=== PATIENT | male | born 1960 | race Caucasian/White ===

== ENCOUNTER → 2018-05-01 09:45 | Outpatient (CLI) | payer MEDICARE, MEDICAID, SELFPAY ==
[2018-05-01 14:11] LABS: Basophils % 0.2 % (0.1-2.0); Eosinophils # 0.2 K/mm3 (0.0-0.4); Eosinophils % 2.1 % (0.1-12.0); Hematocrit 42.7 % (42.0-52.0); Hemoglobin 13.4 g/dL (14.1-18.0); Lymphocytes # 0.7 K/mm3 (0.7-4.5); Lymphocytes % 9.5 K/mm3 (10-50); Mean Corpuscular HGB Conc 31.4 g/dL (31.8-35.4); Mean Corpuscular Hemoglobin 31.3 pg (27.0-31.2); Mean Corpuscular Volume 99.6 fl (80-94); Mean Platelet Volume 8.5 fl (7.4-10.4); Monocytes # 0.6 K/mm3 (0.1-1.0); Monocytes % 8.1 % (1.7-9.3); Neutrophils # 5.8 K/mm3 (1.8-7.8); Neutrophils % 80.1 % (37.0-80.0); Platelet Count 264 K/mm3 (142-424); Red Blood Count 4.28 M/mm3 (4.60-6.20); Red Cell Distribution Width 13.3 % (11.5-17.5); White Blood Count 7.2 K/mm3 (4.8-10.8)
[2018-05-01 14:34] LABS: Alanine Aminotransferase 20 U/L (12-78); Albumin Level 3.7 gm/dL (3.4-5.0); Albumin/Globulin Ratio 1.3 (1.1-1.8); Alkaline Phosphatase 79 U/L (46-116); Anion Gap 12.6 mEq/L (5-15); Aspartate Amino Transferase 9 U/L (15-37); Bilirubin,Total 0.3 mg/dL (0.2-1.0); Blood Urea Nitrogen 9 mg/dL (7-18); Calcium 9.3 mg/dL (8.5-10.1); Carbon Dioxide 29 mmol/L (21.0-32.0); Chloride 105 mmol/L (98-107); Chol/HDL Ratio 3.9 (1-3.5); Cholesterol 174 mg/dL (140-200); Creatinine,Serum 0.65 mg/dL (0.70-1.30); Estimated Glomerular Filt Rate 126 ml/min (>60); GFR (African American) 152 ML/MIN (>60); Globulin 2.8 gm/dl (1.3-3.2); Glucose 82 mg/dL (74-106); HDL Cholesterol 45 mg/dL (27-67); LDL Cholesterol 97 mg/dL (0-130); Potassium 4.6 mmoL/L (3.5-5.1); Sodium 142 mmol/L (136-145); T4 (Thyroxine) 7.8 ug/dl (4.7-13.3); Thyroid Stimulating Hormone 3.31 uIU/ml (0.358-3.740); Total Protein,Serum 6.5 gm/dL (6.4-8.2); Triglycerides 160 mg/dL (30-200); VLDL Cholesterol 32 mg/dL (0-40)
[2018-05-05 05:23] LABS: Prostate Specific Ag 0.6 ng/mL (0.0-4.0); Vitamin D 25 Hydroxy 30.5 ng/mL (30.0-100.0)
== END ==
PROVIDERS: Visit Provider Physician Assistant
DX: I10 Essential (primary) hypertension (principal); R07.9 Chest pain, unspecified; R42 Dizziness and giddiness; Z85.9 Personal history of malignant neoplasm, unspecified; Z92.21 Personal history of antineoplastic chemotherapy; Z92.3 Personal history of irradiation
CPT/HCPCS: 80053; 80061; 82652; 84153; 84154; 84436; 84443; 85025

== ENCOUNTER → 2018-05-06 13:00 | Outpatient (CLI) | payer MEDICARE, MEDICAID, SELFPAY ==
--- NOTE | 2018-05-06 13:02 | CT_ITS ---
CT chest wo con HISTORY: Shortness of air, tobacco use, smoker ITS.REASON: . ORDERING PHYSICIAN: Remi Quinonez MD PATIENT AGE: 57 years COMPARISON: None Technique: Axial images obtained with sagittal and coronal reformats. All CT scans at the facility use one or more dose reduction, viz: automated exposure control, ma/kV adjustment per patient size (including targeted exams where dose is matched to indication, i.e. head), or iterative reconstruction technique. FINDINGS: No mediastinal or hilar mass or adenopathy. There are a few small lymph nodes in the mediastinum some of which are calcified. Coronary artery calcifications are present. There is minimal thickening of the pericardium anteriorly. There are centrilobular and paraseptal emphysematous changes with scarring in the lung apices. There is a 4 mm noncalcified nodule in right upper lobe anteriorly and a 4 mm nodule in the right lower lobe posterior to the hilum on image #56 there is mild diffuse bronchial thickening. Minimal parenchymal density is noted in the left lower lobe laterally #63 may be due to an area of scarring or atelectatic change. There is a 6 mm noncalcified nodule in the right upper lobe inferiorly on image #53.. No central obstructing lesion. No effusions or infiltrates. There are mild atelectatic or fibrotic changes in the lingula and right middle lobe. Upper abdominal images show a right renal cyst at 3 cm. No acute bony anomalies. IMPRESSION: 1. Centrilobular and paraseptal emphysema with apical blebs and biapical scarring with COPD 2. There are at least 3 noncalcified pulmonary nodules largest in the right upper lobe inferiorly measuring up to 6 mm. Recommend 6 month follow-up. 3. Coronary artery calcifications
== END ==
PROVIDERS: PCP Physician Assistant; Visit Provider Internal Medicine Cardiovascular Disease
DX: F17.200 Nicotine dependence, unspecified, uncomplicated (principal); I10 Essential (primary) hypertension; R06.00 Dyspnea, unspecified; R07.9 Chest pain, unspecified; R94.31 Abnormal electrocardiogram [ECG] [EKG]; Z82.49 Family history of ischemic heart disease and other diseases of the circulatory system; Z85.9 Personal history of malignant neoplasm, unspecified; Z92.21 Personal history of antineoplastic chemotherapy; Z92.3 Personal history of irradiation
CPT/HCPCS: 71250

== ENCOUNTER → 2018-05-09 06:27 | Outpatient (CLI) | payer MEDICARE, MEDICAID, SELFPAY ==
--- NOTE | 2018-05-09 06:30 | NM_ITS ---
History and Indications: Hypertension, tobacco use, family history, chest pain, shortness of breath and fatigue Procedure: Patient received a 0.4 mg of Lexiscan, resting heart rate was 79 bpm resting blood pressure 103/70, with Lexiscan maximum heart rate achieved was 104 bpm, and the blood pressure was 106/63. With Lexiscan patient complained of chest pain. Electrocardiogram: Resting electrocardiogram showed sinus rhythm, with Lexiscan there is less than 1.[address] segment depression noted from the baseline EKG. The EKG portion of the Lexiscan Myoview is nondiagnostic. Cardiac stress and resting SPECT images: Cardiac stress and rest SPECT images were obtained using technetium 99 Myoview 30.4 mCi at stress gated 10.5 mCi at rest, gated SPECT further analysis of segmental wall motion and calculation of the ejection fraction also done. Cardiac stress and rest images show uniform myocardial activity without segmental perfusion abnormality, computer derived ejection fraction 55% with no regional wall motion abnormality, right ventricle is normal size and contractility. Conclusion: 1. The EKG portion of the Lexiscan Myoview is nondiagnostic. 2. No scintigraphic evidence of reversible ischemia seen, computer ejection fraction 55% with no regional wall motion abnormality. Right ventricle is normal size and contractility. 3. Normal Lexiscan Myoview study.
--- NOTE | 2018-05-09 06:30 | CA_ITS ---
PROCEDURE: 2-D M-mode and color Doppler study INDICATIONS FOR THE TEST: Chest pain+ COPD Heart Murmur Tobacco Smoking+ Palpitations+ Fatigue Syncope Edema Hypertension+Diabetes Mellitus Rheumatic Fever SOB+KRISHNAMURTHY+Obesity Hyperlipidemia Family History HD+ Additional History abn EKG, dizziness PATIENT INFORMATION HEIGHT: 71 WEIGHT: 148 GENDER: Male B/P: 111/67 2-D/M-MODE INTERPRETATION: 2-D MEASUREMENTS OBSERVED VALUES IN CMS Right Ventricular Dimension (RVDd) 1.8 Interventricular Septum (Thickness)(IVsd) 0.8 Left Ventricular Internal Dimensions(LVIDd) 4.9 Left Ventricular Posterior Wall (Thickness)(LVPWd) 0.8 Aortic Root 3.1 Aortic Cusp Separation 2.2 Left Atrial Dimensions (LAD) 2.5 2D 1. Left atrium is normal size, left ventricle is normal size, there is no concentric left ventricular hypertrophy, visually estimated ejection fraction of 55% with no regional wall motion abnormality. 2. The right atrium and right ventricle are normal size and contractility. 3. The aortic valve is minimally thickened and fibrosed. 4. The mitral valve has mild calcification of the valve. There is no mitral stenosis. 5. The tricuspid valve is grossly normal. 6. The pulmonic valve is poorly was visualized. 7. No significant pericardial effusion noted. DOPPLER INTERROGATION: Doppler interrogation of the aortic, mitral and tricuspid valvular presence of mild mitral and tricuspid regurgitation, tricuspid regurgitation jet velocity is insufficient for calculation of the right ventricular systolic pressure, diastolic parameters are inconclusive. CONCLUSION: 1. Normal left ventricular size, preserved left ventricular systolic function, visually estimated ejection fraction 55% with no obvious regional wall motion abnormality, diastolic parameters are inconclusive. 2. Mild mitral and tricuspid regurgitation 3. No significant pericardial effusion noted.
== END ==
PROVIDERS: PCP Physician Assistant; Visit Provider Internal Medicine Cardiovascular Disease
DX: F17.200 Nicotine dependence, unspecified, uncomplicated (principal); I10 Essential (primary) hypertension; R06.00 Dyspnea, unspecified; R07.9 Chest pain, unspecified; R94.31 Abnormal electrocardiogram [ECG] [EKG]; Z82.49 Family history of ischemic heart disease and other diseases of the circulatory system; Z85.9 Personal history of malignant neoplasm, unspecified; Z92.21 Personal history of antineoplastic chemotherapy; Z92.3 Personal history of irradiation
CPT/HCPCS: 78452; 93017; 93306; A9502; J2785

== ENCOUNTER → 2019-04-29 14:49 | Outpatient (CLI) | payer MEDICARE, MEDICAID, SELFPAY ==
[2019-04-30 19:41] LABS: Amphetamine/Metha Screen,Urine Negative ng/mL (<1000); Barbiturates Screen,Urine Negative ng/mL (<200); Benzodiazepines Screen,Urine Negative ng/mL (<200); Cannabinoid Screen,Urine Negative ng/mL (<50); Cocaine Screen,Urine Negative ng/mL (<300); Methadone Screen,Urine Negative ng/mL (<300); Opiate Screen,Urine Negative ng/mL (<300); Phencyclidine Screen,Urine Negative ng/mL (<25)
== END ==
PROVIDERS: Visit Provider Emergency Medicine
DX: Z79.891 Long term (current) use of opiate analgesic (principal)
CPT/HCPCS: 80305

== ENCOUNTER → 2020-10-07 14:30 | Outpatient (CLI) | payer MEDICARE, SELFPAY ==
[2020-10-07 17:15] LABS: Basophils % 0.5 % (0.1-2.0); Eosinophils # 0.2 K/mm3 (0.0-0.4); Eosinophils % 1.9 % (0.1-12.0); Hemoglobin 14.3 g/dL (14.1-18.0); Lymphocytes # 1.3 K/mm3 (0.7-4.5); Lymphocytes % 16.5 % (10-50); Mean Corpuscular HGB Conc 31.1 g/dL (31.8-35.4); Mean Corpuscular Hemoglobin 29.1 pg (27.0-31.2); Mean Corpuscular Volume 93.6 fl (80-94); Mean Platelet Volume 9.9 fl (7.4-10.4); Monocytes # 0.5 K/mm3 (0.1-1.0); Monocytes % 6.4 % (1.7-9.3); Neutrophils # 5.9 K/mm3 (1.8-7.8); Neutrophils % 74.8 % (37.0-80.0); Platelet Count 286 K/mm3 (142-424); Red Blood Count 4.91 M/mm3 (4.60-6.20); Red Cell Distribution Width 13.3 % (11.5-17.5); White Blood Count 7.9 K/mm3 (4.8-10.8)
[2020-10-07 17:21] LABS: Chloride 101 mmol/L (98-107); Potassium 4.7 mmoL/L (3.5-5.1); Sodium 136 mmol/L (136-145)
[2020-10-07 17:23] LABS: Alanine Aminotransferase 11 U/L (12-78); Anion Gap 12.7 mEq/L (5-15); Aspartate Amino Transferase 19 U/L (17-59); Blood Urea Nitrogen 14 mg/dl (9-20); Carbon Dioxide 27 mmol/L (22.0-30.0); Estimated Glomerular Filt Rate 86 ml/min (>60); GFR (African American) 104 ML/MIN (>60)
[2020-10-07 17:24] LABS: Albumin Level 4.6 g/dl (3.5-5.0); Albumin/Globulin Ratio 1.6 (1.1-1.8); Alkaline Phosphatase 88 U/L (38-126); Bilirubin,Total 0.5 mg/dl (0.2-1.3); Calcium 10.5 mg/dl (8.4-10.2); Chol/HDL Ratio 5.7 (1-3.5); Cholesterol 256 mg/dl (140-200); Globulin 2.9 g/dL (1.3-3.2); Glucose 96 mg/dl (74-100); HDL Cholesterol 45 mg/dl (40-60); Total Protein,Serum 7.5 g/dl (6.3-8.2); Triglycerides 206 mg/dl (30-150); VLDL Cholesterol 41 mg/dL (0-40)
[2020-10-07 17:36] LABS: Direct LDL Cholesterol 172.95 mg/dL (100-129)
[2020-10-07 17:47] LABS: T4 (Thyroxine) 13.4 ug/dl (5.53-11.0)
[2020-10-07 18:00] LABS: Thyroid Stimulating Hormone 0.25 uIU/mL (0.465-4.68)
[2020-10-07 18:01] LABS: 25-OH Vitamin D, Total 24.8 ng/mL (30-100)
[2020-10-09 16:58] LABS: PSA, Free 0.23 ng/mL; Prostate Specific Ag 0.7 ng/mL (0.0-4.0)
== END ==
PROVIDERS: Visit Provider Emergency Medicine
DX: Z79.899 Other long term (current) drug therapy (principal); I10 Essential (primary) hypertension; E55.9 Vitamin D deficiency, unspecified; N50.819 Testicular pain, unspecified; Z92.21 Personal history of antineoplastic chemotherapy; Z92.3 Personal history of irradiation; Z85.9 Personal history of malignant neoplasm, unspecified; F17.210 Nicotine dependence, cigarettes, uncomplicated
CPT/HCPCS: 80053; 80061; 82306; 84153; 84154; 84436; 84443; 85025

== ENCOUNTER → 2020-11-22 15:46 | Outpatient (CLI) | payer MEDICARE, SELFPAY ==
[2020-11-22 20:09] LABS: Barbiturates Screen,Urine Negative ng/ml (<200)
[2020-11-22 20:10] LABS: Benzodiazepines Screen,Urine Negative ng/ml (<200)
[2020-11-22 20:11] LABS: Cocaine Screen,Urine Negative ng/ml (<300); Methadone Screen,Urine Negative ng/ml (<300)
[2020-11-22 20:12] LABS: Opiate Screen,Urine Positive ng/ml (<300)
[2020-11-22 20:13] LABS: Phencyclidine Screen,Urine Negative ng/ml (<25)
[2020-11-22 20:44] LABS: Amphetamine/Metha Screen,Urine Negative ng/ml (<1000); Cannabinoid Screen,Urine Negative ng/ml (<50)
== END ==
PROVIDERS: Visit Provider Emergency Medicine
DX: Z79.899 Other long term (current) drug therapy (principal)
CPT/HCPCS: 80305

== ENCOUNTER → 2021-01-17 13:58 | Outpatient (CLI) | payer MEDICARE, SELFPAY ==
[2021-01-17 14:25] LABS: Benzodiazepines Screen,Urine Negative ng/ml (<200)
[2021-01-17 14:26] LABS: Cannabinoid Screen,Urine Negative ng/ml (<50)
[2021-01-17 14:27] LABS: Methadone Screen,Urine Negative ng/ml (<300)
[2021-01-17 14:30] LABS: Phencyclidine Screen,Urine Negative ng/ml (<25)
[2021-01-17 14:57] LABS: Amphetamine/Metha Screen,Urine Negative ng/ml (<1000)
[2021-01-17 16:50] LABS: Barbiturates Screen,Urine Negative ng/ml (<200)
[2021-01-17 16:51] LABS: Opiate Screen,Urine Positive ng/ml (<300)
[2021-01-17 18:32] LABS: Cocaine Screen,Urine Negative ng/ml (<300)
== END ==
PROVIDERS: Visit Provider Emergency Medicine
DX: M54.9 Dorsalgia, unspecified (principal); Z79.899 Other long term (current) drug therapy
CPT/HCPCS: 80305

== ENCOUNTER → 2021-02-03 14:55 | Outpatient (CLI) | payer MEDICARE, SELFPAY ==
--- NOTE | 2021-02-03 14:55 | MR_ITS ---
PROCEDURE INFORMATION: Exam: MR Lumbar Spine Without Contrast Exam date and time: 02/03/2021 2:55 PM Age: 60 years old Clinical indication: Patient HX: Low back pain, tingling and numbness in left leg TECHNIQUE: Imaging protocol: Multiplanar magnetic resonance images of the lumbar spine without intravenous contrast. COMPARISON: No relevant prior studies available. FINDINGS: Vertebral body height and AP alignment is preserved. Disc desiccation at L5-S1. Negative for discitis/osteomyelitis. Conus medullaris terminates L1-L2. Right-sided sacral Tarlov cyst measures 2.5 cm. L1-L2: No significant central or foraminal stenosis. L2-L3: Mild facet joint arthropathy without significant central or foraminal stenosis. L3-L4: Minimal disc bulge and mild bilateral facet joint arthropathy. No significant central or foraminal stenosis. L4-L5: Mild disc bulge and mild bilateral facet joint arthropathy. No significant central canal stenosis. There is mild bilateral foraminal stenosis. L5-S1: Mild disc bulge with mild bilateral facet joint arthropathy. No significant central canal stenosis. There is mild right and moderate to severe left foraminal stenosis. IMPRESSION: 1. No acute abnormality involving the lumbar spine. 2. No significant central canal compromise throughout. 3. Moderate to severe left-sided foraminal stenosis at L5-S1.
--- NOTE | 2021-02-03 14:55 | MR_ITS ---
PROCEDURE INFORMATION: Exam: MR Cervical Spine Without Contrast Exam date and time: 02/03/2021 2:55 PM Age: 60 years old Clinical indication: Patient HX: Neck pain, tingling and numbness in arms, previous surgery on neck to remove cancer TECHNIQUE: Imaging protocol: Multiplanar magnetic resonance images of the cervical spine without contrast. COMPARISON: CT HEAD/BRAIN WO CON 09/18/2019 10:56 PM FINDINGS: Alignment grossly normal. Signal intensity within the bone marrow normal. Spinal cord normal. Visualized portions of the brain in the posterior fossa is also normal. Mild degenerative disc disease throughout much of the cervical spine including C3-C4 through C6-C7. Annular disc bulge and/or disc protrusions. No marrow edema C2-C3: Central canal and neural foramina are widely patent. C3-C4: Broad-based annular disc bulge effaces the anterior aspect of the thecal sac mildly so. Mild narrowing of the left neural foramina C4-C5: Mild broad-based annular disc bulge with a small central disc protrusion. Mild narrowing of the left neural foramina. C5-C6: Central canal and neural foramina are widely patent. C6-C7: Central canal and neural foramina are widely patent. C7-T1: Central canal and neural foramina are widely patent. IMPRESSION: Mild degenerative disc disease. See above.
== END ==
PROVIDERS: PCP Emergency Medicine; Visit Provider Emergency Medicine
DX: M54.9 Dorsalgia, unspecified (principal); M54.2 Cervicalgia; M54.5 Low back pain
CPT/HCPCS: 72141; 72148; 76376

== ENCOUNTER 2021-03-02 23:19 | Emergency (ER) | payer MEDICARE, SELFPAY ==
[2021-03-02 23:20] VITALS: BP 136/80; PULSE 90; RESP 18; TEMP 36.6; O2SAT 97; BMI 22.3
[2021-03-02 23:31] VITALS: BMI 34.5
--- NOTE | 2021-03-02 23:41 | ECG_ITS ---
APPROVED REPORT Exam: Resting ECG HR:79 bpm ECG Measurements Heart Rate 79 AXES AK 178 P 39 QRSd 78 QRS 56 QT 368 T 51 QTc 421 Conclusion Sinus rhythm with premature supraventricular complexes Otherwise normal ECG Electronically signed by : Ayaan Ray, 03/03/2021 21:36:18
[2021-03-02 23:57] LABS: Alanine Aminotransferase 14 U/L (12-78); Albumin Level 4.3 g/dl (3.5-5.0); Albumin/Globulin Ratio 1.7 (1.1-1.8); Alkaline Phosphatase 83 U/L (38-126); Aspartate Amino Transferase 23 U/L (17-59); Bilirubin,Total 0.5 mg/dl (0.2-1.3); Blood Urea Nitrogen 10 mg/dl (9-20); Calcium 9.3 mg/dl (8.4-10.2); Carbon Dioxide 27 mmol/L (22.0-30.0); Chloride 101 mmol/L (98-107); Creatinine Clearance Estimated 96 mL/min (50-200); Estimated Glomerular Filt Rate 86 ml/min (>60); Ethyl Alcohol < 10 mg/dl (0-10); GFR (African American) 103 ML/MIN (>60); Globulin 2.6 g/dL (1.3-3.2); Glucose 94 mg/dl (74-100); Sodium 136 mmol/L (136-145); Total Protein,Serum 6.9 g/dl (6.3-8.2)
[2021-03-03] VITALS (7 sets, daily range): BP systolic 144–183; BP diastolic 77–95; PULSE 65–73; RESP 18; TEMP 36.7; O2SAT 92–94
[2021-03-03 00:02] LABS: C-Reactive Protein 4.8 mg/L (0-4)
[2021-03-03 00:10] LABS: Basophils % 0.5 % (0.1-2.0); Eosinophils # 0.2 K/mm3 (0.0-0.4); Eosinophils % 2.9 % (0.1-12.0); Hematocrit 40.3 % (42.0-52.0); Hemoglobin 13.8 g/dL (14.1-18.0); Lymphocytes # 1.8 K/mm3 (0.7-4.5); Lymphocytes % 25.5 % (10-50); Mean Corpuscular HGB Conc 34.2 g/dL (31.8-35.4); Mean Corpuscular Hemoglobin 30.3 pg (27.0-31.2); Mean Corpuscular Volume 88.7 fl (80-94); Mean Platelet Volume 8.5 fl (7.4-10.4); Monocytes # 0.6 K/mm3 (0.1-1.0); Monocytes % 7.8 % (1.7-9.3); Neutrophils # 4.5 K/mm3 (1.8-7.8); Neutrophils % 63.2 % (37.0-80.0); Platelet Count 222 K/mm3 (142-424); Red Blood Count 4.54 M/mm3 (4.60-6.20); Red Cell Distribution Width 13.7 % (11.5-17.5); White Blood Count 7.1 K/mm3 (4.8-10.8)
--- NOTE | 2021-03-03 00:10 | XR_ITS ---
PROCEDURE INFORMATION: Exam: XR Chest Exam date and time: 03/03/2021 12:10 AM Age: 60 years old Clinical indication: Other: Left face droop, left arm numb, chest pain; Patient HX: Facial droop and numb left side, left arm numb, chest pain; Additional info: Numbness, facial droop TECHNIQUE: Imaging protocol: XR of the chest. Views: 2 views. COMPARISON: CR XR CHEST 2V 09/18/2019 10:45 PM FINDINGS: Lungs: There is a horizontal band of density in the left lung base periphery. Otherwise unremarkable. No consolidation. Pleural spaces: Unremarkable. No pleural effusion. No pneumothorax. Heart/Mediastinum: Unremarkable. No cardiomegaly. Bones/joints: Unremarkable. IMPRESSION: 1. There is discoid atelectasis in the left lower lobe periphery. 2. Otherwise no additional acute cardiopulmonary process.
--- NOTE | 2021-03-03 00:11 | CT_ITS ---
PROCEDURE INFORMATION: Exam: CT Head Without Contrast Exam date and time: 03/03/2021 12:11 AM Age: 60 years old Clinical indication: Other: Left face numb left left arm numb left face droop; Additional info: Left side facial droop , numbness and weakness to TECHNIQUE: Imaging protocol: Computed tomography of the head without contrast. Radiation optimization: All CT scans at this facility use at least one of these dose optimization techniques: automated exposure control; mA and/or kV adjustment per patient size (includes targeted exams where dose is matched to clinical indication); or iterative reconstruction. Other technique: STROKE PROTOCOL was implemented. COMPARISON: CT HEAD/BRAIN WO CON 09/18/2019 10:56 PM FINDINGS: Brain: No evidence of acute intracranial hemorrhage. No acute parenchymal edema. Cerebral ventricles: No ventriculomegaly. Paranasal sinuses: Visualized sinuses are unremarkable. No fluid levels. Mastoid air cells: Unremarkable as visualized. No mastoid effusion. Bones/joints: No acute fracture. Soft tissues: Unremarkable. IMPRESSION: No acute intracranial process. ASSESSMENT: ASPECTS ([place] Stroke Program Early CT Score) is 10.
--- NOTE | 2021-03-03 00:12 | CT_ITS ---
PROCEDURE INFORMATION: Exam: CT Angiography Head With Contrast, Arteriography Exam date and time: 03/03/2021 12:12 AM Age: 60 years old Clinical indication: Other: Left face droop, left face and left arm numb; Patient HX: Left face and left arm numb left face droop; Additional info: Facial droop, numbness, MAGALLON TECHNIQUE: Imaging protocol: Computed tomography angiography of the head with contrast. Exam focused on the arteries. 3D rendering (Not supervised by radiologist): MIP and/or 3D reconstructed images were created by the technologist. Radiation optimization: All CT scans at this facility use at least one of these dose optimization techniques: automated exposure control; mA and/or kV adjustment per patient size (includes targeted exams where dose is matched to clinical indication); or iterative reconstruction. Contrast material: ISOVUE 370; Contrast volume: 100 ml; Contrast route: INTRAVENOUS (IV); COMPARISON: CT HEAD/BRAIN WO CON 09/18/2019 10:56 PM FINDINGS: ANTERIOR CIRCULATION: Right internal carotid artery: There are mural calcifications and plaque along the course of the intracranial internal carotid artery. There is no resulting stenosis of the intracranial segments. Right middle cerebral artery: Unremarkable. No occlusion or significant stenosis. No aneurysm. Right anterior cerebral artery: Unremarkable. No occlusion or significant stenosis. No aneurysm. Left internal carotid artery: There are mural calcifications and plaque along the course of the intracranial internal carotid artery. There is no resulting stenosis of the intracranial segments. Left middle cerebral artery: Unremarkable. No occlusion or significant stenosis. No aneurysm. Left anterior cerebral artery: Unremarkable. No occlusion or significant stenosis. No aneurysm. POSTERIOR CIRCULATION: Right vertebral artery: Unremarkable. No occlusion or significant stenosis. No aneurysm. Left vertebral artery: Unremarkable. No occlusion or significant stenosis. No aneurysm. Basilar artery: Unremarkable. No occlusion or significant stenosis. No aneurysm. Right posterior cerebral artery: There is an hypoplastic P1 segment. There is auxiliary supply to the P2 segment is supplied by a patent P-comm. No occlusion or significant stenosis. No aneurysm. Left posterior cerebral artery: There is an hypoplastic P1 segment. There is auxiliary supply to the P2 segment is supplied by a patent P-comm. No occlusion or significant stenosis. No aneurysm. Brain: No definite mass, mass effect, or midline shift. Cerebral ventricles: No ventriculomegaly. Bones/joints: Unremarkable. No acute fracture. Soft tissues: Unremarkable. IMPRESSION: 1. There are mild calcific atherosclerotic changes of the bilateral intracranial internal carotid arteries but no resulting significant stenosis. 2. No evidence of intracranial large vessel stenosis or occlusion of the remaining intracranial arterial vasculature. 3. No evidence of aneurysm or AVM.
--- NOTE | 2021-03-03 00:13 | CT_ITS ---
PROCEDURE INFORMATION: Exam: CT Angiography Neck With Contrast Exam date and time: 03/03/2021 12:13 AM Age: 60 years old Clinical indication: Other: Left face droop, left face and arm numb; Prior surgery; Surgery date: 6+ months; Surgery type: Left neck mass removed; Patient HX: Left face numb left arm numb left face droop; Additional info: Facial droop, numbness, MAGALLON TECHNIQUE: Imaging protocol: Computed tomography angiography of the neck with contrast. 3D rendering (Not supervised by radiologist): MIP and/or 3D reconstructed images were created by the technologist. Radiation optimization: All CT scans at this facility use at least one of these dose optimization techniques: automated exposure control; mA and/or kV adjustment per patient size (includes targeted exams where dose is matched to clinical indication); or iterative reconstruction. Contrast material: ISOVUE 370; Contrast volume: 100 ml; Contrast route: INTRAVENOUS (IV); COMPARISON: MR CERVICAL SPINE WO CON 02/03/2021 3:06 PM FINDINGS: Right common carotid artery: Unremarkable. No significant stenosis. No dissection or occlusion. Right internal carotid artery: There is calcified mural plaque at the carotid bifurcation, but no significant stenosis. The remaining extracranial segment is patent with no significant stenosis. No dissection or occlusion. Right external carotid artery: No occlusion or stenosis of the origin. Left common carotid artery: Unremarkable. No significant stenosis. No dissection or occlusion. Left internal carotid artery: There is calcified mural plaque at the carotid bifurcation, but no significant stenosis. The remaining extracranial segment is patent with no significant stenosis. No dissection or occlusion. Left external carotid artery: No occlusion or stenosis of the origin. Right vertebral artery: No stenosis. No dissection or occlusion. Left vertebral artery: No stenosis. No dissection or occlusion. Soft tissues: Normal. No significant soft tissue swelling. Bones/joints: No acute fracture. Lungs: There is panlobular and paraseptal emphysema in the bilateral upper lobes. IMPRESSION: [id number] calcific atherosclerotic changes at the bilateral carotid bifurcations, but no significant stenosis or occlusion. Otherwise no additional evidence of cervical great vessel stenosis or occlusion. REFERENCES: NASCET CRITERIA. The degree of internal carotid artery stenosis is based on NASCET criteria. Normal is no stenosis. Mild is less than 50% stenosis. Moderate is 50-69% stenosis. Severe is 70% to 99% stenosis. Total occlusion is no detectable patent lumen.
[2021-03-03 00:17] LABS: Troponin I < 0.01 ng/ml (0.00-0.034)
[2021-03-03 00:30] LABS: Thyroid Stimulating Hormone 1.51 uIU/mL (0.465-4.68)
[2021-03-03 00:58] LABS: Microscopic, Urine URINE MICROSCOPIC (MICROSCOPIC)
--- NOTE | 2021-03-03 01:01 | PC.NURSE ---
Delia speaking with SARA at this time
--- NOTE | 2021-03-03 01:02 | CT_ITS ---
PROCEDURE INFORMATION: Exam: CT Abdomen And Pelvis Without Contrast Exam date and time: 03/03/2021 1:02 AM Age: 60 years old Clinical indication: Abdominal pain; Acute; Additional info: Abd pain TECHNIQUE: Imaging protocol: Computed tomography of the abdomen and pelvis without contrast. Radiation optimization: All CT scans at this facility use at least one of these dose optimization techniques: automated exposure control; mA and/or kV adjustment per patient size (includes targeted exams where dose is matched to clinical indication); or iterative reconstruction. COMPARISON: MR LUMBAR SPINE WO CON 02/03/2021 3:06 PM FINDINGS: Liver: Unremarkable. No mass. Gallbladder and bile ducts: Multiple noncalcified stones in the gallbladder. No gallbladder wall thickening or pericholecystic fluid. Pancreas: Normal. No ductal dilation. Spleen: Normal. No splenomegaly. Adrenal glands: Normal. No mass. Kidneys and ureters: Multiple cysts in the kidneys. No solid renal masses. No hydronephrosis. Stomach and bowel: There is colonic diverticulosis without evidence of diverticulitis. The small bowel is unremarkable. No bowel obstruction. Appendix: No evidence of appendicitis. Intraperitoneal space: No free air. No significant fluid collection. Vasculature: Unremarkable. No abdominal aortic aneurysm. Lymph nodes: Unremarkable. No enlarged lymph nodes. Urinary bladder: Unremarkable as visualized. Reproductive: Unremarkable as visualized. Bones/joints: Unremarkable. No acute fracture. Soft tissues: Small fat containing ventral abdominal wall hernia. IMPRESSION: 1. Cholelithiasis. No secondary signs of acute cholecystitis. 2. Fat containing ventral abdominal wall hernia. 3. Colonic diverticulosis without evidence of diverticulitis. COMMENTS: Consistent with the [employer]'s Incidental Findings Committee white paper (J Am Tunde Radiol 2018): Any incidental renal lesion less than 1 cm or classified as too small to characterize, or any incidental cystic renal lesion characterized as simple-appearing, is likely benign. No follow-up imaging is recommended for these lesions per consensus recommendations based on imaging criteria.
--- NOTE | 2021-03-03 01:09 | [facility].EDNEU ---
ED Disposition Clinical Impression: TIA (transient ischemic attack) Cholelithiasis Qualifiers: Cholelithiasis location: gallbladder Cholecystitis presence: without cholecystitis Biliary obstruction: without biliary obstruction Qualified Code(s): K80.20 - Calculus of gallbladder without cholecystitis without obstruction Disposition: Home, Self-Care Condition on Discharge: Good Instructions: DI for Gallstones Additional Instructions: see pcp and dr carbone for follow up Referrals: Gallo Lin MD [Primary Care Provider] - Maykel Carbone MD [Staff Physician] - - Critical Care Critical Care Time: No Attestation: On 03/02/21, the high probability of a clinically significant, sudden or life threatening deterioration of the following system(s) required my full and direct attention, intervention and personal management. The time I documented below is in addition to time spent performing reported procedures but includes the following listed in this critical care notation. Medical Decision Making - Medical Records Medical records reviewed: Yes: I reviewed the patient's medical records. - Umer Inquiry Pt receiving controlled substance: No Vital Signs: 03/02/21 23:20 03/03/21 00:00 03/03/21 00:30 Temperature 97.8 F Temperature Source Oral Pulse Rate 67 65 Pulse Rate [Right] 90 Respiratory Rate 18 Blood Pressure 144/82 H 145/77 H Blood Pressure [Right Arm] 136/80 Blood Pressure Mean [Right Arm] 98 02 Sat by Pulse Oximetry 97 93 L 92 L 03/03/21 01:00 Temperature Temperature Source Pulse Rate 70 Pulse Rate [Right] Respiratory Rate Blood Pressure 183/94 H Blood Pressure [Right Arm] Blood Pressure Mean [Right Arm] 02 Sat by Pulse Oximetry 92 L - Lab Data Lab results reviewed: Yes: I reviewed the patient's lab results. Lab Results 03/02/21 23:30: WBC 7.1, RBC 4.54 L, Hgb 13.8 L, Hct 40.3 L, MCV 88.7, MCH 30.3, MCHC 34.2, RDW 13.7, Plt Count 222, MPV 8.5, Neut % (Auto) 63.2, Lymph % (Auto) 25.5, Edgar % (Auto) 7.8, Eos % (Auto) 2.9, Baso % (Auto) 0.5, Neut # (Auto) 4.5, Lymph # (Auto) 1.8, Edgar # (Auto) 0.6, Eos # (Auto) 0.2, Baso # (Auto) 0.0, ESR 22 H 03/02/21 23:30: Sodium 136, Potassium 4.0, Chloride 101, Carbon Dioxide 27, Anion Gap 12.0, BUN 10, Creatinine 0.90, Estimated Creat Clear 96, Estimated GFR 86, Est GFR ( Amer) 103, Glucose 94, Calcium 9.3, Total Bilirubin 0.5, AST 23, ALT 14, Alkaline Phosphatase 83, Troponin I < 0.01, C-Reactive Protein 4.8 H, Total Protein 6.9, Albumin 4.3, Globulin 2.6, Albumin/Globulin Ratio 1.7, TSH 1.51 03/02/21 23:30: Plasma/Serum Alcohol < 10 03/03/21 00:50: Urine Color Yellow, Urine Appearance Clear, Urine pH 6.0, Ur Specific [place] 1.010, Urine Protein Negative, Urine Glucose (UA) Negative, Urine Ketones Negative, Urine Blood Negative, Urine Nitrate Negative, Urine Bilirubin Negative, Urine Urobilinogen 0.2, Ur Leukocyte Esterase Negative, Urine RBC None, Urine WBC None, Ur Squamous Epith Cells None, Urine Bacteria None 03/03/21 00:50: Urine Opiates Screen Positive H, Urine Methadone Screen Negative, Ur Barbituates Screen Negative, Ur Phencyclidine Scrn Negative, Ur Amphetamines Screen Negative, U Benzodiazepines Scrn Negative, Urine Cocaine Screen Negative, U Marijuana (THC) Screen Negative Result diagrams: 03/02/21 23:30 03/02/21 23:30 Orders (Tests/Meds): ED MEDICATIONS Discontinued Medications Generic Name Dose Route Start Last Admin Trade Name Elanq PRN Reason Stop Dose Admin Iopamidol 100 ml 03/03/21 00:30 03/03/21 00:33 Iopamidol-370 (76%);100ml Bottle IV 03/03/21 00:31 100 ml ONCE ONE Administration Sodium Chloride 40 ml 03/03/21 00:30 03/03/21 00:33 0.9 % Sodium Chloride 50 Ml Vial IV 03/03/21 00:31 40 ml ONCE ONE Administration Sodium Chloride 10 ml 03/03/21 00:30 03/03/21 00:33 Sodium Chloride 0.9% 10ml Syr (Rad Only) IV 03/03/21 00:31 10 ml ONCE ONE Administration ORDERS
[2021-03-03 01:22] LABS: Appearance,Urine CLEAR (Clear); Bilirubin,Urine Negative (Negative); Blood, Urine Negative (Negative); Color,Urine YELLOW (Yellow); Glucose,Urine (UA) Negative (Negative); Ketones,Urine Negative (Negative); Leukocyte Esterase,Urine Negative (Negative); Nitrate,Urine Negative (Negative); Protein,Urine Negative (Negative); Urobilinogen,Urine 0.2 EU/dl (0.2)
[2021-03-03 01:26] LABS: Erythrocyte Sedimentation Rate 22 mm/hr (0-20)
[2021-03-03 01:40] LABS: Barbiturates Screen,Urine Negative ng/ml (<200)
[2021-03-03 01:41] LABS: Benzodiazepines Screen,Urine Negative ng/ml (<200)
[2021-03-03 01:42] LABS: Amphetamine/Metha Screen,Urine Negative ng/ml (<1000); Cannabinoid Screen,Urine Negative ng/ml (<50)
[2021-03-03 01:43] LABS: Cocaine Screen,Urine Negative ng/ml (<300); Methadone Screen,Urine Negative ng/ml (<300)
[2021-03-03 01:44] LABS: Opiate Screen,Urine Positive ng/ml (<300)
[2021-03-03 01:45] LABS: Phencyclidine Screen,Urine Negative ng/ml (<25)
[2021-03-03 04:16] LABS: Troponin I < 0.01 ng/ml (0.00-0.034)
== END 2021-03-03 03:52 | disposition home or self-care (01) ==
PROVIDERS: Emergency Provider Emergency Medicine; PCP Emergency Medicine
DX: G45.8 Other transient cerebral ischemic attacks and related syndromes (principal); K80.20 Calculus of gallbladder without cholecystitis without obstruction; E03.9 Hypothyroidism, unspecified; I10 Essential (primary) hypertension; K21.9 Gastro-esophageal reflux disease without esophagitis; F17.210 Nicotine dependence, cigarettes, uncomplicated; Z79.899 Other long term (current) drug therapy
CPT/HCPCS: 70450; 70496; 70498; 71046; 74176; 80053; 80305; 81001; 84443; 84484; 85025; 85651; 86140; 93005; 99284; Q9967

== ENCOUNTER → 2021-03-09 13:32 | Outpatient (POV) | payer MEDICARE, SELFPAY ==
[2021-03-09 14:02] VITALS: BP 129/91; PULSE 97; RESP 18; O2SAT 95; BMI 25.8
--- NOTE | 2021-03-10 07:27 | [facility].PMCON ---
Assessment and Plan (1) Degenerative joint disease (DJD) of lumbar spine Status: Chronic Category: Medical Code(s): M47.816 - Spondylosis without myelopathy or radiculopathy, lumbar region (2) Lumbar radiculopathy Status: Chronic Category: Medical Code(s): M54.16 - Radiculopathy, lumbar region (3) Degenerative joint disease of cervical spine Status: Chronic Category: Medical Code(s): M47.812 - Spondylosis without myelopathy or radiculopathy, cervical region (4) Cervical radiculopathy Status: Chronic Category: Medical Code(s): M54.12 - Radiculopathy, cervical region - Assessment and plan all Dx Assessment and Plan for all problems:: The patient has undergone injective therapy in the past which did not provide him much relief. He has also tried physical therapy in the past along with continued home stretching. He has not interested in implanted devices at this time. He would like to follow-up with his primary care provider and seek a referral to [facility] pain management for oral medication management. He has been advised if he does decide in the future to undergo conventional therapies to contact clinic. Patient has been instructed to contact the clinic with any concerns before the next appointment. Dr. Gilbert has reviewed this note and agrees with this plan of care. This note was dictated using voice recognition software and make contain errors or omissions. HPI - Data of Consult Patient: new to practice Consult date: 03/10/21 Requesting Physician: Genesis Gonzalez APRN Primary Care Provider: Gallo Lin MD - Consult Narrative Reason for consult: Chronic low back pain, chronic neck pain History of present illness: Mr. Medina is a 60 year old male who presents today for consultation for chronic neck and low back pain. Patient was referred to us by Dr. Lin. Patient says he has had chronic neck and low back pain for many years. He says the pain has progressively worsened. He is having numbness and tingling in bilateral lower extremities. His pain is a 4 out of 10 today. He has been managed in the past with oral medications. He is currently on [place] 10 mg 1 tablet p.o. 4 times daily, gabapentin 400 mg 1 tablet p.o. 3 times daily and clonazepam 0.5 mg 1 tablet p.o. twice daily. Patient says that this does not give him much relief. He says the pain is radicular in nature. It is radiating into his left hip, left buttock and left knee. He is unable to sleep at night. He says he has to sleep on his back which worsens the pain in his back. He also has neck pain that also radiates into bilateral upper extremities. He is here today to inquire about oral medications. Patient I did discuss that we can offer interventional therapy such as injections and possible implanted devices if injective therapy is not relieving pain effectively, however, he says he would prefer oral medications. Patient would like a referral to [facility] pain management if possible. He will discuss this with his primary care provider, Dr. Lin. Patient is not interested in injective therapy. CC: Genesis Gonzalez APRN [facility] History I have reviewed the patient's past medical history: Yes Medical History: Reports:: Cancer, Gastroesophageal Reflux Disease(GERD), Hypertension Denies:: Diabetes Mellitus Type 1, Diabetes Mellitus Type 2, Internal Pacemaker, MRSA *Have you ever received a pneumonia vaccine?: Yes *Have you received a flu vaccine this season?: Yes Laterality Cases: Bilateral: Tonsillectomy Other Surgeries: Yes: No Previous Surgery, Cancer Surgery, Colonoscopy. No: Pacemaker Amputation: No Fractures: No - *Social History Smoking Status: Current every day smoker Tobacco Type: cigarettes # Packs/Day (cigarettes): 1 Alcohol Intake: never Alcohol Intake Frequency:: other Substance Use Type: denies use *Occupational Status:: unemployed *Travel in the last 8 weeks: None Family Hx::
== END ==
PROVIDERS: PCP Emergency Medicine; Visit Provider Clinical Nurse Specialist Family Health
DX: M47.896 Other spondylosis, lumbar region (principal); M54.16 Radiculopathy, lumbar region; M47.892 Other spondylosis, cervical region; M54.12 Radiculopathy, cervical region
CPT/HCPCS: 99202; G0463

== ENCOUNTER → 2021-04-12 08:35 | Outpatient (CLI) | payer MEDICARE, SELFPAY | PROVIDERS: Visit Provider Surgery | DX: Z01.812 Encounter for preprocedural laboratory examination (principal); Z20.822 Contact with and (suspected) exposure to COVID-19; K80.20 Calculus of gallbladder without cholecystitis without obstruction | CPT/HCPCS: U0003 ==

== ENCOUNTER → 2021-05-10 13:38 | Outpatient (CLI) | payer MEDICARE, SELFPAY ==
[2021-05-10 14:01] LABS: Barbiturates Screen,Urine Negative ng/ml (<200); Benzodiazepines Screen,Urine Negative ng/ml (<200)
[2021-05-10 14:02] LABS: Amphetamine/Metha Screen,Urine Negative ng/ml (<1000)
[2021-05-10 14:03] LABS: Cannabinoid Screen,Urine Negative ng/ml (<50); Cocaine Screen,Urine Negative ng/ml (<300)
[2021-05-10 14:04] LABS: Methadone Screen,Urine Negative ng/ml (<300)
[2021-05-10 14:05] LABS: Opiate Screen,Urine Positive ng/ml (<300); Phencyclidine Screen,Urine Negative ng/ml (<25)
== END ==
PROVIDERS: Visit Provider Emergency Medicine
DX: M47.816 Spondylosis without myelopathy or radiculopathy, lumbar region (principal)
CPT/HCPCS: 80305

== ENCOUNTER → 2021-09-05 17:58 | Outpatient (CLI) | payer MEDICARE, SELFPAY | PROVIDERS: PCP Emergency Medicine; Visit Provider Nurse Practitioner | DX: U07.1 COVID-19 (principal) | CPT/HCPCS: C9803; U0003; U0005 ==

== ENCOUNTER → 2021-10-29 09:30 | Outpatient (CLI) | payer MEDICARE, SELFPAY ==
[2021-10-29 10:40] LABS: Basophils # 0.1 K/mm3 (0-0.2); Basophils % 1.4 % (0.1-2.0); Eosinophils # 0.1 K/mm3 (0.0-0.4); Eosinophils % 1.7 % (0.1-12.0); Hematocrit 44.7 % (42.0-52.0); Lymphocytes # 1.1 K/mm3 (0.7-4.5); Lymphocytes % 13.2 % (10-50); Mean Corpuscular HGB Conc 31.4 g/dL (31.8-35.4); Mean Corpuscular Hemoglobin 29.6 pg (27.0-31.2); Mean Corpuscular Volume 94.4 fl (80-94); Mean Platelet Volume 8.7 fl (7.4-10.4); Monocytes # 0.4 K/mm3 (0.1-1.0); Monocytes % 5.1 % (1.7-9.3); Neutrophils # 6.6 K/mm3 (1.8-7.8); Neutrophils % 78.6 % (37.0-80.0); Platelet Count 269 K/mm3 (142-424); Red Blood Count 4.74 M/mm3 (4.60-6.20); Red Cell Distribution Width 13.3 % (11.5-17.5); White Blood Count 8.4 K/mm3 (4.8-10.8)
[2021-10-29 10:45] LABS: Chloride 101 mmol/L (98-107); Potassium 4.4 mmoL/L (3.5-5.1); Sodium 132 mmol/L (136-145)
[2021-10-29 10:47] LABS: Alanine Aminotransferase 15 U/L (12-78); Aspartate Amino Transferase 31 U/L (17-59); Blood Urea Nitrogen 9 mg/dl (9-20); Estimated Glomerular Filt Rate 114 ml/min (>60); GFR (African American) 138 ML/MIN (>60)
[2021-10-29 10:48] LABS: Albumin Level 4.3 g/dl (3.5-5.0); Albumin/Globulin Ratio 1.6 (1.1-1.8); Alkaline Phosphatase 79 U/L (38-126); Bilirubin,Total 0.7 mg/dl (0.2-1.3); Calcium 8.9 mg/dl (8.4-10.2); Chol/HDL Ratio 4.1 (1-3.5); Cholesterol 160 mg/dl (140-200); Globulin 2.7 g/dL (1.3-3.2); Glucose 94 mg/dl (74-100); HDL Cholesterol 39 mg/dl (40-60); Triglycerides 125 mg/dl (30-150); VLDL Cholesterol 25 mg/dL (0-40)
[2021-10-29 10:59] LABS: Direct LDL Cholesterol 94.38 mg/dL (100-129)
[2021-10-29 11:19] LABS: Thyroid Stimulating Hormone 0.44 uIU/mL (0.465-4.68)
[2021-10-29 12:18] LABS: Free T4 (Free Thyroxine) 2.35 ng/dl (0.78-2.19)
[2021-10-29 13:03] LABS: Anion Gap 10.4 mEq/L (5-15); Carbon Dioxide 25 mmol/L (22.0-30.0)
[2021-10-31 10:23] LABS: Prostate Specific Ag Screen 0.8 ng/ml (0.0-4.0)
== END ==
PROVIDERS: Visit Provider Internal Medicine
DX: C76.0 Malignant neoplasm of head, face and neck (principal); I10 Essential (primary) hypertension; E78.5 Hyperlipidemia, unspecified; E03.2 Hypothyroidism due to medicaments and other exogenous substances; Z12.5 Encounter for screening for malignant neoplasm of prostate
CPT/HCPCS: 36415; 80053; 80061; 84439; 84443; 85025; G0103